=== PATIENT | male | born 1965 | race Caucasian/White ===

== ENCOUNTER 2017-09-08 08:12 | Day surgery (SDC) | payer OTHER ==
[~2017-09-08 08:12] MED LIST: LIDOCAINE HCL 1% MPF SOL ONE; PROPOFOL 500 MG/50 ML EMU IV ONE
[2017-09-08 10:18] VITALS: TEMP 97.9
[2017-09-08 10:42] VITALS: BP 133/86; PULSE 65; RESP 20; O2SAT 96
== END 2017-09-08 11:03 | disposition home or self-care (01) | DRG 951 ==
LOC: SURG 08:12
PROVIDERS: ATTEND Internal Medicine Gastroenterology
DX: Z12.11 Encounter for screening for malignant neoplasm of colon (principal); K57.32 Diverticulitis of large intestine without perforation or abscess without bleeding; K64.8 Other hemorrhoids; E83.19 Other disorders of iron metabolism
CPT/HCPCS: 99001; J2001; J2704